=== PATIENT | male | born 1940 | race Hispanic/Latino ===

== ENCOUNTER 2018-06-02 22:10 | Inpatient (IN) | payer MEDICARE, OTHER ==
[2018-06-02 22:10] VITALS: BMI 28.0
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
[2018-06-02 23:46] LABS: BASO # 0.1 K/uL (0.0-0.2); BASO % 0.6 % (0.0-2.0); EOS # 0.1 K/uL (0.0-0.7); EOS % 0.7 % (0.0-4.0); HEMOGLOBIN 11.2 g/dL (12.0-18.0); MEAN CELL VOLUME 93.4 fL (80.0-94.0); MEAN CORPUSCULAR HEMOGLOBIN 31.9 pg (27.0-31.0); MEAN CORPUSCULAR HGB CONC 34.2 g/dL (33.0-37.0); MEAN PLATELET VOLUME 8.2 fL (7.2-11.7); MONO # 0.6 K/uL (0.0-0.8); MONO % 6.1 % (0.0-10.0); NEUT # 8.3 K/uL (1.8-7.0); NEUT % 82.6 % (50.0-75.0); RBC 3.52 Mil/uL (4.40-5.90); RED CELL DISTRIBUTION WIDTH 17.5 % (11.5-14.5); WHITE BLOOD COUNT 10.1 K/uL (4.8-10.8)
[2018-06-02 23:56] LABS: ALB/GLOB RATIO 1.3 (1.0-2.1); ALBUMIN 4.4 g/dL (3.5-5.0); ALT/SGPT 21 U/L (21-72); AST/SGOT 21 U/L (17-59); BLOOD UREA NITROGEN 35 mg/dL (9-20); CALCIUM 9.5 mg/dl (8.6-10.4); GFR NON-AFRICAN AMERICAN 29
[2018-06-03] MEDS ORDERED: Sod Polystyrene Sulf 15 gm/60 ml Susp PO ONE (01:16)
[2018-06-03] MEDS ORDERED: Sod Polystyrene Sulf 15 gm/60 ml Susp ONE (01:22)
[2018-06-03 01:40] LABS: SQUAMOUS EPITHIAL < 1 /hpf (0-5); URINE BILIRUBIN NEGATIVE (NEGATIVE); URINE BLOOD NEGATIVE (NEGATIVE); URINE CLARITY Clear (Clear); URINE COLOR Yellow (YELLOW); URINE GLUCOSE (UA) NORMAL (Normal); URINE LEUKOCYTE ESTERASE NEG Leu/uL (Negative); URINE PROTEIN NEGATIVE (NEGATIVE); URINE UROBILINOGEN NORMAL mg/dL (0.2-1.0)
[2018-06-03 01:54] LABS: BARBITURATES, UR NEGATIVE (NEGATIVE); BENZODIAZEPINES, UR NEGATIVE (NEGATIVE); OPIATES, UR NEGATIVE (NEGATIVE); PHENCYCLIDINE, UR NEGATIVE (NEGATIVE)
--- NOTE | 2018-06-03 07:54 | CT ---
Date of service: 06/03/2018 PROCEDURE: CT HEAD WITHOUT CONTRAST. HISTORY: frequent falls COMPARISON: None available. TECHNIQUE: Axial computed tomography images were obtained through the head/brain without intravenous contrast. Radiation dose: Total exam DLP = 1002.77 mGy-cm. This CT exam was performed using one or more of the following dose reduction techniques: Automated exposure control, adjustment of the mA and/or kV according to patient size, and/or use of iterative reconstruction technique. FINDINGS: HEMORRHAGE: No intracranial hemorrhage. BRAIN: No mass effect or edema. Scattered focal lucencies in the subcortical and periventricular white matter suggestive for chronic microvascular ischemic change. VENTRICLES: Prominent ventricles. CALVARIUM: Unremarkable. PARANASAL SINUSES: Mild mucosal thickening of the ethmoid air cells. MASTOID AIR CELLS: Unremarkable as visualized. No inflammatory changes. OTHER FINDINGS: Intracranial arterial calcifications. IMPRESSION: No acute intracranial abnormality. Chronic microvascular ischemic changes. Diffuse generalized atrophy. Mild sinus mucosal disease. If symptoms persist, consider correlation with MRI. A preliminary report was generated at 1:30 a.m. on 06/03/[address] Eros Quiñonez from [employer].
[2018-06-03 08:06] LABS: BASO # 0.1 K/uL (0.0-0.2); BASO % 0.7 % (0.0-2.0); EOS # 0.1 K/uL (0.0-0.7); EOS % 1.3 % (0.0-4.0); HEMOGLOBIN 10.4 g/dL (12.0-18.0); LYMPH # 1.5 K/uL (1.0-4.3); LYMPH % 19.3 % (20.0-40.0); MEAN CELL VOLUME 92.6 fL (80.0-94.0); MEAN CORPUSCULAR HEMOGLOBIN 31.8 pg (27.0-31.0); MEAN CORPUSCULAR HGB CONC 34.3 g/dL (33.0-37.0); MEAN PLATELET VOLUME 8.1 fL (7.2-11.7); MONO # 0.6 K/uL (0.0-0.8); MONO % 8.2 % (0.0-10.0); NEUT # 5.5 K/uL (1.8-7.0); NEUT % 70.5 % (50.0-75.0); RBC 3.28 Mil/uL (4.40-5.90); RED CELL DISTRIBUTION WIDTH 17.8 % (11.5-14.5); WHITE BLOOD COUNT 7.7 K/uL (4.8-10.8)
[2018-06-03 08:25] LABS: ALB/GLOB RATIO 1.3 (1.0-2.1); ALBUMIN 4.1 g/dL (3.5-5.0); ALT/SGPT 20 U/L (21-72); AST/SGOT 20 U/L (17-59); BLOOD UREA NITROGEN 35 mg/dL (9-20); CALCIUM 9.4 mg/dl (8.6-10.4); GFR NON-AFRICAN AMERICAN 37
--- NOTE | 2018-06-03 08:51 | RAD ---
Chest x-ray single frontal view HISTORY: Altered mental status. COMPARISON: 06/07/2013 FINDINGS: Mild venous congestion. Patchy increased markings at the left lung base with small left pleural effusion. Status post median sternotomy. Enlarged ectatic aorta. Cardiomegaly. Biapical pleural thickening with upper lobe granulomatous changes. Degenerative changes in the spine and shoulders. Impression: Mild venous congestion. Patchy increased markings at the left lung base with small left pleural effusion. Status post median sternotomy. Enlarged ectatic aorta. Cardiomegaly. Biapical pleural thickening with upper lobe granulomatous changes.
[2018-06-03 09:35] LABS: FOLATE > 20.0 ng/mL
[2018-06-03] MEDS: diltiaZEM 60 mg ER Cap PO SCH (09:41)
--- NOTE | 2018-06-03 09:41 | CP.PCM.PN ---
Subjective - Date & Time of Evaluation Date of Evaluation: 06/03/18 Time of Evaluation: 09:37 - Subjective Subjective: PGY3 Note for Dr. Shabazz's Service PMD: Dr. Ramirez Cardiology: Dr. Baires FULL CODE This patient is a 78yo M who came into the hospital s/p mechanical fall; states he was getting up out of his chair to go to the bathroom, lost his footing, and landed only on his knees. He denies any loss of consciousness, remembers the entire event, and he denies incontinence of urine/feces during the event. Denies any precipitating chest pain, palpitations, shortness of breath, abdominal pain, N/V/D, dysuria/freq/urg or headache/fevers/chills. Has been feeling generally well. Alternatively, the patient states he has been noticing that his daily walks down [address] have been decreasing in length 2/2 to weakness; stating he gets more winded than normal. Sleeps with one pillow; denies nocturnal dyspnea or orthopnea; can sleep/lay flat without problem. Denies lower extremity swelling. PMhx: CAD s/p "20" stents, open valvuloplasty, HLD, Hypertrigliceridemia, BPH, DM2 on insulin, Iron Def Anemia, CKD3A, GERD, Seasonal Allergies, HTN, Depression, CHF?? Meds: Aspirin 81mg, Vit D 1k daily, Cardizem ER 240, Finasteride 5 daily, Tamsulosin 0.4 daily, Gemfibrozil 600mg daily, Lantus 100 HS, Aspart 30 before meals, Claritin 10 daily, Toprol XL 25, Omeprazole 20, Ramipril 10, Crestor 5, Brillanta 90, Venlafaxine 75mg BID Surgeries: multiple stent placements, open heart valvuloplasty Allergies: Sulfa, seasonal FamHx: Mom and dad with HTN, DM, CHF Social: Former smoker, hasn't smoked for over 40 years, denies EtOH/illicit drugs; bought a walker 1yr ago for ambulation (doctor did not tell him to, he felt he needed it 2/2 to unsteady gait), independent in all IADL and ADL Objective - Vital Signs/Intake and Output Vital Signs (last 24 hours): Temp Pulse Resp BP Pulse Ox 98.7 F 83 16 119/58 L 96 06/03/18 07:59 06/03/18 07:59 06/03/18 07:59 06/03/18 07:59 06/03/18 07:59 - Medications Medications: Current Medications Acetaminophen (Tylenol 325mg Tab) 650 mg PO Q4H PRN PRN Reason: Pain, moderate (4-7) Last Admin: 06/03/18 06:35 Dose: 650 mg Aspirin (Aspirin Chewable) 81 mg PO DAILY [facility] Diltiazem HCl (Cardizem Sr) 240 mg PO DAILY [facility] Finasteride (Proscar) 5 mg PO DAILY [facility] Gemfibrozil (Lopid) 600 mg PO BID [facility] Heparin Sodium (Porcine) (Heparin) 5,000 units SC Q8 [facility] Home Med (Cholecalciferol [Vitamin D 1000 Iu]) 1,000 iu PO DAILY [facility] Home Med (Iron Aspgly,Ps/C/B12/Fa/Ca/Suc [Ferrex 150 Forte Plus Capsule]) 1 cap PO DAILY [facility] Insulin Aspart (Novolog) unit SC ACHS [facility]; Protocol Insulin Glargine (Lantus) 100 unit SC HS [facility] Lisinopril (Zestril) 20 mg PO DAILY [facility] Loratadine (Claritin) 10 mg PO DAILY [facility] Metoprolol Succinate (Toprol Xl) 25 mg PO DAILY [facility] Pantoprazole Sodium (Protonix Ec Tab) 40 mg PO DAILY [facility] Rosuvastatin Calcium (Crestor) 5 mg PO DAILY@1800 [facility] Tamsulosin HCl (Flomax) 0.4 mg PO DAILY [facility] Ticagrelor (Brilinta) 90 mg PO BID [facility] Venlafaxine HCl (Effexor Xr) 75 mg PO BID [facility] - Labs Labs: 06/03/18 07:57 06/03/18 07:57 - Constitutional Appears: Non-toxic, No Acute Distress - Head Exam Head Exam: ATRAUMATIC, NORMAL INSPECTION - Eye Exam Eye Exam: EOMI, Normal appearance, PERRL - ENT Exam ENT Exam: Mucous Membranes Moist - Neck Exam Neck Exam: Full ROM. absent: Lymphadenopathy - Respiratory Exam Respiratory Exam: Clear to Ausculation Bilateral, NORMAL BREATHING PATTERN. absent: Rales, Rhonchi, Wheezes - Cardiovascular Exam Cardiovascular Exam: REGULAR RHYTHM, +S1, +S2 - GI/Abdominal Exam GI & Abdominal Exam: Soft, Normal Bowel Sounds. absent: Tenderness (obese abd omen, tense from fat) - Extremities Exam Extremities Exam: Full ROM, Normal Capillary Refill. absent: Calf Tenderness, Joint Swelling, Tenderness - Back Exam Back Exam: NORMAL INSPECTION. absent: CVA tenderness (L), CVA tenderness (R) - Neurological Exam Neurological Exam: Alert, Awake, CN II-XII Intact, Oriented x3 Neuro motor strength exam: Left Upper Extremity: 5, Right Upper Extremity: 5, Left Lower Extremity: 5, Right Lower Extremity: 5 - Psychiatric Exam Psychiatric exam: Normal Affect - Skin Skin Exam: Warm Assessment and Plan - Assessment and Plan (Free Text) Assessment: 78yo M admitted for fall Fall; mechanical -patient moving all extremities with 5/5 strength, ANOx3, full mental faculties -Head CT negative for acute findings; chronic microvascular infarcts and age related degen; please refer to full report -HIV neg, RPR pending, B12 Normal, Folate normal -ROMIx2 negative; Telemetry monitoring; patient has extensive cardiac history -PT/OT eval -Fall Precautions -Telemetry monitoring; CKD Stage 3A -Dr. Mejia; thank you for your help -patient unaware of kidney problems, but has been in CKD 3 since last visit on record -Hematology Nurse Educator improved slightly today CHF; chronic not in acute exacerbation; unknown current systolic vs diastolic -2012 echo showed EF of 20-25 percent -Dr. Baires; Cardiology; thank you for your help; this is his blow mold operator as outpatient -patient states that had echo within the year at Dr. Baires office; has never been told that he needs a defibrillator/life vest/AICD -f/u Echo -patient not clinically overloaded; no crackles, no lower extrem swelling Hyperkalemia; resolved -will monitor -most likely 2/2 to CKD 3 Hx of CAD with valvuloplasty and stenting -c/w Aspirin 81, Brillanta 90 daily Hx of HLD/Hypertrigliceridemia -c/w crestor 5 and Gemfibrozil 600 daily Hx of BPH -c/w finasteride 5 and tamsulosin 0.4mg daily Hx of DM2 on Insulin -c/w Lantus 100units SC HS, 30 units aspart before meals -RISS -hypoglycemia protocol -accuchecks ACHS Hx of Anemia; most likely 2/2 to chronic disease -will monitor -c/w Iron supplement Hx of GERD -c/w PPI equivalent of omeprazole Hx of Seasonal Allergies -continue with claritin 10mg daily Hx of HTN -c/w Toprol 25mg, Ramipril 10mg Hx of Depression -c/w Venlafaxine 75mg BID Proph -Hep SC 2/2 to elevations in Hematology Nurse Educator -GI prophylaxis not indicated Case discussed and seen with Dr. Mele Vázquez PGY3
[2018-06-03] MEDS: Venlafaxine 75 mg ER Cap PO SCH ×2 (09:42→18:10)
[2018-06-03] MEDS: Metoprolol Succinate 25 mg XL Tab PO SCH (09:43)
[2018-06-03] MEDS: Pantoprazole 40 mg EC Tab PO SCH (09:43)
[2018-06-03] MEDS ORDERED: Home Med 1 UNIT (Cholecalciferol [Vitamin D 1000 Iu] 1,000 IU) PO SCH (10:00)
[2018-06-03] MEDS ORDERED: Ergocalciferol 50,000 Intl Units Cap PO SCH (10:00)
[2018-06-03] MEDS ORDERED: [UNRECOGNIZED DRUG - OTHER] PO SCH (10:00)
[2018-06-03] MEDS: (Novolog) Insulin Aspart, Recombinant 100 u/ml 10 ml vial SC SCH ×4 (10:20→21:46)
[2018-06-03 10:39] LABS: IRON 69 ug/dL (49-181)
[2018-06-03 10:45] LABS: TOTAL IRON BINDING CAPACITY 327 ug/dL (250-450)
[2018-06-03 10:48] LABS: % IRON SATURATION 21 (20-55)
[2018-06-03] MEDS ORDERED: Perflutren Lipid Microsphere 1.5 ML SUS IV ONE (11:09)
--- NOTE | 2018-06-03 12:25 | CARD ---
APPROVED REPORT Date of service: 06/02/2018 EKG Measurement Heart [id number] <Conclusion> Sinus rhythm with 1st degree AV block Left axis deviation Left bundle branch block Abnormal ECG
[2018-06-03] MEDS ORDERED: (Novolin R) Insulin Human Regular 100 units/ml vial ONE (13:28)
--- NOTE | 2018-06-03 14:03 | CP.PCM.CON ---
History of Present Illness - History of Present Illness History of Present Illness: Nephrology Consultation Note: Assessment: Stable Acute Kidney Injury (N17.9) ? etiology. possible NSAIDs contribution Anemia (D64.9) frequent fall at home HAGMA diabetes Mellitus ( years), hypertension (years) CAD s/p stent hyperlipidemia. anxiety, sys CHF (last EF 20-25%) BPH Plan No acute need for renal replacement therapy at this time. Hypertension control with meds as ordered. Maintain hemodynamics stable. Avoid hypotension. Patient not on ACEI/ARB due to recent CHANA Monitor Input/Output, daily weights and renal function with basic metabolic panel added iron. continue with MVI continue with flomax Check urine analysis, spot protein/creatinine, albumin/creatinine ratio, urine for eosinophils. renal and bladder sonogram Check GN work up as C3, C4, JOE, Anti dsDNA, ANCA (MPO and SD-3) Anemia work up with TSAT/Ferritin/Vitamin B12/folate, serum protein electrophoresis with immunofixation, serum free light chain assay ([place]/Lambda) Check for 25-OH vitamin D, iPTH, phosphorus level. Dose meds/antibiotics for reduced GFR. Avoid fleets enema/magnesium based laxatives. Avoid nephrotoxins/NSAIDs/ iodinated contrast (unless needed emergently) Glycemic control Further work up/management as per primary team Thanks for allowing me to participate in care of your patient. Will follow patient with you. Please call if any Qs. had d/w team Dr Chip Mcgee Office: [phone] Chief Complaint; fall and weakness Reason for consult: Acute Kidney Injury HPI: Pt is a 78 M with hx of diabetes Mellitus ( years), hypertension (years) CAD s/p stent hyperlipidemia. anxiety, sys CHF (last EF 20-25%) BPH presented with complaints of weakness in legs and frequent fall at home. pt otherwise feels in usual health. denies dizziness, GI fluid loss or urine complaints Denies OTC/herbal meds or NSAIDs but home meds list include naproxen No recent iodinated contrast exposure. No obvious episodes of low BP. ROS: Cardiovascular: No chest pain. Pulmonary: No shortness of breath Gastrointestinal: denies abdominal pain No nausea. No vomiting. Genitourinary: No pain while urinating. Denies blood in urine. All other negative except as mentioned in HPI Physical Examination: General Appearance: Comfortable, in no acute respiratory distress, co-operative . Vitals reviewed and noted as below Head; Atraumatic, normocephalic ENT: no ulcers no thrush. Tongue is midline. Oropharynx: no rash or ulcers. he is hard of hearing EYES: Pupils are equal, round and reactive to light accommodation. Eye muscles and extraocular movement intact. Sclera is anicteric. Neck; supple no lymphadenopathy, no thyromegaly or bruit Lungs: Normal respiratory rate/effort. Breath sounds bilateral equal and clear Heart: Normal rate. s1s2 normal. No rub or gallop. Extremities: no edema. No varicose veins Neurological: Patient is alert, awake and oriented to person, place and time. No focal deficit. Strength bilateral appropriate and equal Skin: Warm and dry. Normal turgor. Palpitation: Normal elasticity for age. has petechial appearing rash in lower extremity. pt says due to skin injury from climbing ladders. Abdomen: Abdomen is soft/distended. Bowel sounds +. There is no abdominal tenderness, no guarding/rigidity no organomegaly Psych: normal insight and normal affect/mood MSK: no joint tenderness or swelling. Digits and nails normal, no deformity : kidney or bladder not palpable Labs/imaging reviewed. Past medical history, past surgical history, family history, social history, allergy reviewed and noted as below Family hx: no hx of CKD. Rest non-contributory UA and urine tox neg Past Patient History - Infectious Disease Hx of Infectious Diseases: None - Past Medical History & Family History Past Medical History?: Yes - Past Social History Smoking Status: Former Smoker - CARDIAC Hx Hypercholesterolemia: Yes Hx Hypertension: Yes - PULMONARY Hx Asthma: Yes Hx Emphysema: Yes (MILD) - NEUROLOGICAL Hx Neurological Disorder: Yes (NEUROPATHY LOWER EXTREMITIES) - HEENT Hx HEENT Problems: Yes Hx Cataracts: Yes (BILATERAL IMMATURE) - RENAL Hx Chronic Kidney Disease: No - ENDOCRINE/METABOLIC Hx Endocrine Disorders: Yes Hx Diabetes Mellitus Type 2: Yes - HEMATOLOGICAL/ONCOLOGICAL Hx Blood Disorders: No - INTEGUMENTARY Hx Dermatological Problems: No - MUSCULOSKELETAL/RHEUMATOLOGICAL Hx Falls: Yes - GASTROINTESTINAL Hx Gastrointestinal Disorders: Yes Hx Colitis: Yes - GENITOURINARY/GYNECOLOGICAL Hx Genitourinary Disorders: Yes Hx Prostate Problems: Yes (BPH) - PSYCHIATRIC Hx Substance Use: No - SURGICAL HISTORY Hx Appendectomy: Yes Hx Coronary Artery Bypass Graft: Yes Hx Coronary Stent: Yes - ANESTHESIA Hx Anesthesia: Yes Hx Anesthesia Reactions: No Hx Malignant Hyperthermia: No Meds Allergies/Adverse Reactions: Allergies Allergy/AdvReac Type Severity Reaction Status Date / Time Sulfa (Sulfonamide Allergy ANAPHYLAXIS Verified 06/02/18 23:19 Antibiotics) DUST Allergy Intermediate WHEEZING Uncoded 06/02/18 22:41 WEEDS Allergy Intermediate WHEEZING Uncoded 06/02/18 22:41 - Medications Medications: Current Medications Acetaminophen (Tylenol 325mg Tab) 650 mg PO Q4H PRN PRN Reason: Pain, moderate (4-7) Last Admin: 06/03/18 06:35 Dose: 650 mg Aspirin (Aspirin Chewable) 81 mg PO DAILY [facility] Last Admin: 06/03/18 09:41 Dose: 81 mg Diltiazem HCl (Cardizem Sr) 240 mg PO DAILY [facility] Last Admin: 06/03/18 09:41 Dose: 240 mg Ergocalciferol (Drisdol 50,000 Intl Units Cap) 1 cap PO QWK [facility] Finasteride (Proscar) 5 mg PO DAILY [facility] Last Admin: 06/03/18 09:53 Dose: Not Given Gemfibrozil (Lopid) 600 mg PO BID [facility] Last Admin: 06/03/18 09:42 Dose: 600 mg Heparin Sodium (Porcine) (Heparin) 5,000 units SC Q8 [facility] Last Admin: 06/03/18 09:51 Dose: 5,000 units Insulin Aspart (Novolog) 0 unit SC [facility]; Protocol Last Admin: 06/03/18 10:20 Dose: Not Given Insulin Glargine (Lantus) 100 unit SC [facility] Loratadine (Claritin) 10 mg PO DAILY [facility] Last Admin: 06/03/18 09:41 Dose: 10 mg Metoprolol Succinate (Toprol Xl) 25 mg PO DAILY [facility] Last Admin: 06/03/18 09:43 Dose: 25 mg Multivitamins/Minerals (Therapeutic-M Tab) 1 tab PO DAILY [facility] Pantoprazole Sodium (Protonix Ec Tab) 40 mg PO DAILY [facility] Last Admin: 06/03/18 09:43 Dose: 40 mg Rosuvastatin Calcium (Crestor) 5 mg PO DAILY@1800 [facility] Tamsulosin HCl (Flomax) 0.4 mg PO DAILY [facility] Last Admin: 06/03/18 09:42 Dose: 0.4 mg Ticagrelor (Brilinta) 90 mg PO BID [facility] Last Admin: 06/03/18 09:41 Dose: 90 mg Venlafaxine HCl (Effexor Xr) 75 mg PO BID [facility] Last Admin: 06/03/18 09:42 Dose: 75 mg Results - Vital Signs Recent Vital Signs: Last Vital Signs Temp 98.7 F 06/03/18 07:59 Pulse 84 06/03/18 10:43 Resp 15 06/03/18 10:43 BP 125/92 H 06/03/18 10:43 Pulse Ox 96 06/03/18 10:43 - Labs Result Diagrams: 06/03/18 07:57 06/03/18 07:57 Labs: Laboratory Results - last 24 hr 06/02/18 06/02/18 06/02/18 22:32 23:38 23:38 WBC 10.1 RBC 3.52 L Hgb 11.2 L Hct 32.8 L MCV 93.4 D MCH 31.9 H MCHC 34.2 RDW 17.5 H Plt Count 189 MPV 8.2 Neut % (Auto) 82.6 H Lymph % (Auto) 10.0 L [place] % (Auto) 6.1 Eos % (Auto) 0.7 Baso % (Auto) 0.6 Neut # (Auto) 8.3 H Lymph # (Auto) 1.0 [place]corn # (Auto) 0.6 Eos # (Auto) 0.1 Baso # (Auto) 0.1 Sodium 139 Potassium 5.8 H Chloride 108 H Carbon Dioxide 17 L Anion Gap 20 BUN 35 H Creatinine 2.2 H Est GFR ( Amer) 35 Est GFR (Non-Af Amer) 29 POC Glucose (mg/dL) 105 Random Glucose 121 H Calcium 9.5 Phosphorus Magnesium Iron TIBC % Saturation Ferritin Total Bilirubin 0.5 AST 21 ALT 21 D Alkaline Phosphatase 78 Total Creatine Kinase CK-MB (Mass) Troponin I < 0.0120 Total Protein 7.7 Albumin 4.4 Globulin 3.3 Albumin/Globulin Ratio 1.3 Vitamin B12 Folate Urine Color Urine Clarity Urine pH Ur Specific [place] Urine Protein Urine Glucose (UA) Urine Ketones Urine Blood Urine Nitrate Urine Bilirubin Urine Urobilinogen Ur Leukocyte Esterase Urine WBC (Auto) Urine RBC (Auto) Ur Squamous Epith Cells Urine Opiates Screen Urine Methadone Screen Ur Barbiturates Screen Ur Phencyclidine Scrn Ur Amphetamines Screen U Benzodiazepines Scrn U Oth Cocaine Metabols U Cannabinoids Screen Alcohol, Quantitative < 10 HIV 1&2 Antibody Screen 06/03/18 06/03/18 06/03/18 01:10 01:10 07:57 WBC RBC Hgb Hct MCV MCH MCHC RDW Plt Count MPV Neut % (Auto) Lymph % (Auto) [place] % (Auto) Eos % (Auto) Baso % (Auto) Neut # (Auto) Lymph # (Auto) [place] # (Auto) Eos # (Auto) Baso # (Auto) Sodium Potassium Chloride Carbon Dioxide Anion Gap BUN Creatinine Est GFR ( Amer) Est GFR (Non-Af Amer) POC Glucose (mg/dL) Random Glucose Calcium Phosphorus 4.0 Magnesium 2.0 Iron TIBC % Saturation Ferritin Total Bilirubin AST ALT Alkaline Phosphatase Total Creatine Kinase CK-MB (Mass) Troponin I Total Protein Albumin Globulin Albumin/Globulin Ratio Vitamin B12 380 Folate > 20.0 Urine Color Yellow Urine Clarity Clear Urine pH 6.0 Ur Specific [place] 1.013 Urine Protein Negative Urine Glucose (UA) Normal Urine Ketones Negative Urine Blood Negative Urine Nitrate Negative Urine Bilirubin Negative Urine Urobilinogen Normal Ur Leukocyte Esterase Neg Urine WBC (Auto) 1 Urine RBC (Auto) < 1 Ur Squamous Epith Cells < 1 Urine Opiates Screen Negative Urine Methadone Screen Negative Ur Barbiturates Screen Negative Ur Phencyclidine Scrn Negative Ur Amphetamines Screen Negative U Benzodiazepines Scrn Negative U Oth Cocaine Metabols Negative U Cannabinoids Screen Negative Alcohol, Quantitative HIV 1&2 Antibody Screen 06/03/18 06/03/18 06/03/18 07:57 07:57 07:57 WBC 7.7 RBC 3.28 L Hgb 10.4 L Hct 30.4 L MCV 92.6 MCH 31.8 H MCHC 34.3 RDW 17.8 H Plt Count 171 MPV 8.1 Neut % (Auto) 70.5 Lymph % (Auto) 19.3 L [place] % (Auto) 8.2 Eos % (Auto) 1.3 Baso % (Auto) 0.7 Neut # (Auto) 5.5 Lymph # (Auto) 1.5 [place] # (Auto) 0.6 Eos # (Auto) 0.1 Baso # (Auto) 0.1 Sodium 140 Potassium 4.2 Chloride 109 H Carbon Dioxide 18 L Anion Gap 18 BUN 35 H Creatinine 1.8 H Est GFR ( Amer) 45 Est GFR (Non-Af Amer) 37 POC Glucose (mg/dL) Random Glucose 161 H Calcium 9.4 Phosphorus Magnesium Iron TIBC % Saturation Ferritin 78.0 Total Bilirubin 0.4 AST 20 ALT 20 L Alkaline Phosphatase 70 Total Creatine Kinase 51 L CK-MB (Mass) 1.70 Troponin I < 0.0120 Total Protein 7.1 Albumin 4.1 Globulin 3.0 Albumin/Globulin Ratio 1.3 Vitamin B12 Folate Urine Color Urine Clarity Urine pH Ur Specific [place] Urine Protein Urine Glucose (UA) Urine Ketones Urine Blood Urine Nitrate Urine Bilirubin Urine Urobilinogen Ur Leukocyte Esterase Urine WBC (Auto) Urine RBC (Auto) Ur Squamous Epith Cells Urine Opiates Screen Urine Methadone Screen Ur Barbiturates Screen Ur Phencyclidine Scrn Ur Amphetamines Screen U Benzodiazepines Scrn U Oth Cocaine Metabols U Cannabinoids Screen Alcohol, Quantitative HIV 1&2 Antibody Screen Negative 06/03/18 09:42 WBC RBC Hgb Hct MCV MCH MCHC RDW Plt Count MPV Neut % (Auto) Lymph % (Auto) [place] % (Auto) Eos % (Auto) Baso % (Auto) Neut # (Auto) Lymph # (Auto) [place] # (Auto) Eos # (Auto) Baso # (Auto) Sodium Potassium Chloride Carbon Dioxide Anion Gap BUN Creatinine Est GFR ( Amer) Est GFR (Non-Af Amer) POC Glucose (mg/dL) Random Glucose Calcium Phosphorus Magnesium Iron 69 TIBC 327 % Saturation 21 Ferritin Total Bilirubin AST ALT Alkaline Phosphatase Total Creatine Kinase CK-MB (Mass) Troponin I Total Protein Albumin Globulin Albumin/Globulin Ratio Vitamin B12 Folate Urine Color Urine Clarity Urine pH Ur Specific [place] Urine Protein Urine Glucose (UA) Urine Ketones Urine Blood Urine Nitrate Urine Bilirubin Urine Urobilinogen Ur Leukocyte Esterase Urine WBC (Auto) Urine RBC (Auto) Ur Squamous Epith Cells Urine Opiates Screen Urine Methadone Screen Ur Barbiturates Screen Ur Phencyclidine Scrn Ur Amphetamines Screen U Benzodiazepines Scrn U Oth Cocaine Metabols U Cannabinoids Screen Alcohol, Quantitative HIV 1&2 Antibody Screen
[2018-06-03 14:13] LABS: CK-MB 1.67 ng/mL (0.0-3.38); TROPONIN I 0.013 ng/mL (0.00-0.120)
[2018-06-03 14:24] VITALS: RESP 20
--- NOTE | 2018-06-03 15:28 | US ---
Date of service: 06/03/2018 PROCEDURE: Ultrasound of the Kidneys HISTORY: [facility]ANA. PLEASE EVAL FOR PVR COMPARISON: Comparison is made with the previous CT dated 03/28/2014.. TECHNIQUE: Sonogram of the kidneys. FINDINGS: RIGHT KIDNEY: Measures: 11.9 x 5.5 x 5.3 cm. There is diffuse increased echogenicity of the renal cortex noted. No stone, solid mass lesion or hydronephrosis visualized. LEFT KIDNEY: Measures: 12.7 x 5.6 x 5.7 cm. Diffuse increased echogenicity of the renal cortex noted. No stone, solid mass lesion or hydronephrosis visualized. OTHER FINDINGS: The urinary bladder is distended measures 14 x 10 x 10.2 centimeter with a total volume of 751.5 mL. The calculated postvoid residual is significant measures 574.3 mL. The prostate measures 4.5 x 3.75 x 4.6 centimeter with a total volume of 40.6 mL. IMPRESSION: Echogenic kidneys without evidence of hydronephrosis. Significant postvoid residual measures 574.3 mL. Enlarged prostate with a total volume of 40.6 mL.
--- NOTE | 2018-06-03 17:44 | CARD ---
APPROVED REPORT Date of service: 06/03/2018 EXAM: Two-dimensional echocardiogram with contrast. INDICATION Dyspnea 2D DIMENSIONS IVSd0.9 (0.7-1.1cm)LVDd4.7 (3.9-5.9cm) LVOT Diameter2.0 (1.8-2.4cm)PWd0.9 (0.7-1.1cm) LA Pzejir96 (18-58mL)LVDs3.5 (2.5-4.0cm) FS (%) 26.2 %LVEF (%)51.4 (>50%) LVEF ([place]'s)50 % M-Mode DIMENSIONS Left Atrium (MM)4.12 (2.5-4.0cm)Aortic Root2.41 (2.2-3.7cm) Aortic Valve AoV Peak Nkiisaor308.4cm/sAoV VTI43.1cmAO Peak GR.18mmHg LVOT Peak Yulzjkmo021.2cm/sLVOT VTI24.43cmAO Mean GR.10mmHg LEE (VMAX)1.50qy9DVZ (VTI)1.72cm2 Mitral Valve MV E Cphpofgq641.3cm/sE/A ratio0.0 TDI Lateral E' Peak V9.13cm/sMedial E' Peak V7.97cm/sE/Lateral E'15.9 E/Medial E'18.2 LEFT VENTRICLE The left ventricle is normal size. There is normal left ventricular wall thickness. Left ventricle systolic function is normal. The Ejection Fraction is 55-60%. using echo contrast. There is normal LV segmental wall motion. Transmitral Doppler flow pattern is Grade I-abnormal relaxation pattern. There is no ventricular septal defect visualized. RIGHT VENTRICLE The right ventricle is normal size. The right ventricular systolic function is normal. ATRIA The left atrium is mildly dilated. The right atrium size is normal. AORTIC VALVE The aortic valve is mildly sclerotic. The aortic valve is tri-cuspid. No aortic regurgitation is present. There is mild valvular aortic stenosis. Calculated aortic valve area is 1.6 cm2 with maximum pressure gradient of 18 mmHg and mean pressure gradient of 10 mmHg. MITRAL VALVE The mitral valve is normal in structure. The mitral valve is not well visualized. There is no evidence of mitral valve prolapse. There is no mitral valve regurgitation noted. TRICUSPID VALVE The tricuspid valve is not well visualized. There is no tricuspid valve regurgitation noted. PULMONIC VALVE The pulmonic valve is not well visualized. There is no pulmonic valvular regurgitation. GREAT VESSELS The aortic root is normal in size. The ascending aorta is normal in size. The IVC is normal in size and collapses >50% with inspiration. PERICARDIAL EFFUSION There is no pericardial effusion. <Conclusion> Left ventricle systolic function is normal. The Ejection Fraction is 55-60%. using echo contrast. There is normal LV segmental wall motion. Transmitral Doppler flow pattern is Grade I-abnormal relaxation pattern. There is mild valvular aortic stenosis.
--- NOTE | 2018-06-03 18:30 | CP.PCM.CON ---
History of Present Illness - History of Present Illness History of Present Illness: I was asked to see patient by Dr Shabazz. Patient seen 06/03/181819 Patient is a 78 year old male with CAD s/p CABG, PCI, AVR HTn, DM who presents with syncope. Patient states he bent down and tried to lift his head and felt light headed. He was brought to the ER for further management. He insists he did not pass out and merely was dizzy. He denies chest pain or dyspnea Review of Systems - Constitutional Constitutional: absent: As Per HPI, Anorexia, Chills, Daytime Sleepiness, Excessive Sweating, Fatigue, Fever, Frequent Falls, Headache, Increased Appetite, Lethargy, Malaise, Night Sweats, Snoring, Sleep Apnea, Weight Gain, Weight Loss, Weakness, Other - EENT Eyes: absent: As Per HPI, Blind Spots, Blurred Vision, Change in Vision, Decreased Night Vision, Diplopia, Discharge, Dry Eye, Exophthalmos, Floaters, Irritation, Itchy Eyes, Loss of Peripheral Vision, Pain, Photophobia, Requires Corrective Lenses, Sees Flashes, Spots in Vision, Tunnel Vision, Other Visual Disturbances, Loss of Vision, Other Ears: absent: As Per HPI, Decreased Hearing, Ear Discharge, Ear Pain, Tinnitus, Abnormal Hearing, Disequilibrium, Dizziness, Other Nose/Mouth/Throat: absent: As Per HPI, Epistaxis, Nasal Congestion, Nasal Discharge, Nasal Obstruction, Nasal Trauma, Nose Pain, Post Nasal Drip, Sinus Pain, Sinus Pressure, Bleeding Gums, Change in Voice, Dental Pain, Dry Mouth, Dy sphagia, Halitosis, Hoarsness, Lip Swelling, Mouth Lesions, Mouth Pain, Odynophagia, Sore Throat, Throat Swelling, Tongue Swelling, Facial Pain, Neck Pain, Neck Mass, Other - Cardiovascular Cardiovascular: Syncope - Respiratory Respiratory: absent: As Per HPI, Cough, Dyspnea, Hemoptysis, Dyspnea on Exertion, Wheezing, Snoring, Stridor, Pain on Inspiration, Chest Congestion, Excessive Mucous Production, Change in Mucous Color, Pain with Coughing, Other - Gastrointestinal Gastrointestinal: absent: As Per HPI, Abdominal Pain, Belching, Bloating, Change in Bowel Habits, Change in Stool Character, Coffee Ground Emesis, Constipation, Cramping, Diarrhea, Dyspepsia, Dysphagia, Early Satiety, Excessive Flatus, Fecal Incontinence, Heartburn, Hematemesis, Hematochezia, Loose Stools, Melena, Nausea, Odynophagia, Temesmus, Vomiting, Other - Genitourinary Genitourinary: absent: As Per HPI, Change in Urinary Stream, Difficulty Urinating, Dysuria, Flank Pain, Hematuria, Pyuria, Nocturia, Urinary Incontinence, Urinary Frequency, Urinary Hesitance, Urinary Urgency, Voiding Freq/Small Amts, Freq UTI, Hx Renal/Bladder Calculi, Hx /Renal Surgery, Bladder Distension, Other - Musculoskeletal Musculoskeletal: absent: As Per HPI, Abnormal Gait, Arthralgias, Atrophy, Back Pain, Deformity, Joint Swelling, Limited Range of Motion, Loss of Height, Muscle Cramps, Muscle Weakness, Myalgias, Neck Pain, Numbness, Radiating Pain into Limb, Stiffness, Tingling, Other - Integumentary Integumentary: absent: As Per HPI, Acne, Alopecia, Bleeding Lesions, Change in Hair, Change in Nails, Change in Pigmentation, Changing Lesions, Dry Skin, Erythema, Furuncle, Hirsutism, Lesions, New Lesions, Non-Healing Lesions, Photosensitivity, Pruritus, Rash, Skin Pain, Skin Ulcer, Sores, Striae, Swelling, Unusual Bruising, Wounds, Jaundice, Other - Neurological Neurological: absent: As Per HPI, Abnormal Gait, Abnormal Hearing, Abnormal Movements, Abnormal Speech, Behavioral Changes, Burning Sensations, Confusion, Convulsions, Disequilibrium, Dizziness, Numbness, Focal Weakness, Frequent Falls, Headaches, Lack of Coordination, Loss of Vision, Memory Loss, Paresthesias, Radicular Pain, Restless Legs, Sensory Deficit, Syncope, Tingling, Tremor, Vertigo, Weakness, Other Visual Disturbances, Other - Psychiatric Psychiatric: absent: As Per HPI, Abnormal Sleep Pattern, Anhedonia, Anxiety, Auditory Hallucinations, Behavioral Changes, Change in Appetite, Change in Libido, Confusion, Depression, Difficulty Concentrating, Hallucinations, Homicidal Ideation, Hopelessness, Irritability, Memory Loss, Mood Swings, Panic Attacks, Paranoia, Suicidal Ideation, Visual Hallucinations, Tactile Hallucinations, Other - Endocrine Endocrine: absent: As Per HPI, Change in Body Appearance, Change in Libido, Cold Intolorance, Deepening of Voice, Excessive Sweating, Fatigue, Flushing, Heat Intolorance, Increase in Ring/Shoe/Hat Size, Palpitations, Polydipsia, Polyphagia, Polyuria, Other - Hematologic/Lymphatic Hematologic: absent: As Per HPI, Easy Bleeding, Easy Bruising, Lymphadenopathy, Other Past Patient History - Infectious Disease Hx of Infectious Diseases: None - Past Medical History & Family History Past Medical History?: Yes - Past Social History Smoking Status: Former Smoker - CARDIAC Hx Hypercholesterolemia: Yes Hx Hypertension: Yes - PULMONARY Hx Chronic Obstructive Pulmonary Disease (COPD): Yes Hx Emphysema: No - NEUROLOGICAL Hx Neurological Disorder: Yes (NEUROPATHY LOWER EXTREMITIES) - HEENT Hx HEENT Problems: Yes Hx Cataracts: Yes (BILATERAL IMMATURE) - RENAL Hx Chronic Kidney Disease: No - ENDOCRINE/METABOLIC Hx Endocrine Disorders: Yes Hx Diabetes Mellitus Type 2: Yes - HEMATOLOGICAL/ONCOLOGICAL Hx Blood Disorders: No Hx Shingles: Yes - INTEGUMENTARY Hx Psoriasis: Yes - MUSCULOSKELETAL/RHEUMATOLOGICAL Hx Falls: Yes - GASTROINTESTINAL Hx Gastrointestinal Disorders: Yes Hx Colitis: Yes - GENITOURINARY/GYNECOLOGICAL Hx Genitourinary Disorders: Yes Hx Prostate Problems: Yes (BPH) - PSYCHIATRIC Hx Substance Use: No - SURGICAL HISTORY Hx Appendectomy: Yes Hx Coronary Artery Bypass Graft: Yes Hx Coronary Stent: Yes Hx Valve Replacement: Yes - ANESTHESIA Hx Anesthesia: Yes Hx Anesthesia Reactions: No Hx Malignant Hyperthermia: No Has any member of the family had a problem w/ anesthesia?: No Meds Allergies/Adverse Reactions: Allergies Allergy/AdvReac Type Severity Reaction Status Date / Time Sulfa (Sulfonamide Allergy ANAPHYLAXIS Verified 06/02/18 23:19 Antibiotics) DUST Allergy Intermediate WHEEZING Uncoded 06/02/18 22:41 WEEDS Allergy Intermediate WHEEZING Uncoded 06/02/18 22:41 - Medications Medications: Current Medications Acetaminophen (Tylenol 325mg Tab) 650 mg PO Q4H PRN PRN Reason: Pain, moderate (4-7) Last Admin: 06/03/18 18:11 Dose: 650 mg Aspirin (Aspirin Chewable) 81 mg PO DAILY [facility] Last Admin: 06/03/18 09:41 Dose: 81 mg Diltiazem HCl (Cardizem Sr) 240 mg PO DAILY [facility] Last Admin: 06/03/18 09:41 Dose: 240 mg Ergocalciferol (Drisdol 50,000 Intl Units Cap) 1 cap PO QWK [facility] Last Admin: 06/03/18 13:26 Dose: 1 cap Ferrous Gluconate (Fergon) 324 mg PO TID [facility] Last Admin: 06/03/18 18:10 Dose: 324 mg Finasteride (Proscar) 5 mg PO DAILY [facility] Last Admin: 06/03/18 09:53 Dose: Not Given Gemfibrozil (Lopid) 600 mg PO BID [facility] Last Admin: 06/03/18 18:09 Dose: 600 mg Heparin Sodium (Porcine) (Heparin) 5,000 units SC Q8 [facility] Last Admin: 06/03/18 14:49 Dose: Not Given Insulin Aspart (Novolog) 0 unit SC [facility]; Protocol Last Admin: 06/03/18 18:10 Dose: 2 unit Insulin Glargine (Lantus) 100 unit SC [facility] Loratadine (Claritin) 10 mg PO DAILY [facility] Last Admin: 06/03/18 09:41 Dose: 10 mg Metoprolol Succinate (Toprol Xl) 25 mg PO DAILY [facility] Last Admin: 06/03/18 09:43 Dose: 25 mg Multivitamins/Minerals (Therapeutic-M Tab) 1 tab PO DAILY [facility] Pantoprazole Sodium (Protonix Ec Tab) 40 mg PO DAILY [facility] Last Admin: 06/03/18 09:43 Dose: 40 mg Rosuvastatin Calcium (Crestor) 5 mg PO DAILY@1800 [facility] Last Admin: 06/03/18 18:09 Dose: 5 mg Tamsulosin HCl (Flomax) 0.4 mg PO DAILY [facility] Last Admin: 06/03/18 09:42 Dose: 0.4 mg Ticagrelor (Brilinta) 90 mg PO BID [facility] Last Admin: 06/03/18 18:09 Dose: 90 mg Venlafaxine HCl (Effexor Xr) 75 mg PO BID [facility] Last Admin: 06/03/18 18:10 Dose: 75 mg Physical Exam - Constitutional Appears: Non-toxic - Head Exam Head Exam: NORMAL INSPECTION - Eye Exam Eye Exam: Normal appearance - ENT Exam ENT Exam: Mucous Membranes Moist - Neck Exam Neck exam: Positive for: Full Rom, Normal Inspection - Respiratory Exam Respiratory Exam: NORMAL BREATHING PATTERN - Cardiovascular Exam Cardiovascular Exam: REGULAR RHYTHM, Systolic Murmur - GI/Abdominal Exam GI & Abdominal Exam: Normal Bowel Sounds - Rectal Exam Rectal Exam: Deferred - Extremities Exam Extremities exam: Negative for: pedal edema - Back Exam Back exam: NORMAL INSPECTION - Neurological Exam Neurological exam: Alert, Oriented x3 - Psychiatric Exam Psychiatric exam: Normal Affect - Skin Skin Exam: Normal Color Results - Vital Signs Recent Vital Signs: Last Vital Signs Temp 98.6 F 06/03/18 15:51 Pulse 84 06/03/18 15:51 Resp 20 06/03/18 15:51 BP 159/70 H 06/03/18 15:51 Pulse Ox 95 06/03/18 15:51 - Labs Result Diagrams: 06/03/18 07:57 06/03/18 07:57 Labs: Laboratory Results - last 24 hr 06/02/18 06/02/18 06/02/18 22:32 23:38 23:38 WBC 10.1 RBC 3.52 L Hgb 11.2 L Hct 32.8 L MCV 93.4 D MCH 31.9 H MCHC 34.2 RDW 17.5 H Plt Count 189 MPV 8.2 Neut % (Auto) 82.6 H Lymph % (Auto) 10.0 L [place] % (Auto) 6.1 Eos % (Auto) 0.7 Baso % (Auto) 0.6 Neut # (Auto) 8.3 H Lymph # (Auto) 1.0 [place] # (Auto) 0.6 Eos # (Auto) 0.1 Baso # (Auto) 0.1 Sodium 139 Potassium 5.8 H Chloride 108 H Carbon Dioxide 17 L Anion Gap 20 BUN 35 H Creatinine 2.2 H Est GFR ( Amer) 35 Est GFR (Non-Af Amer) 29 POC Glucose (mg/dL) 105 Random Glucose 121 H Calcium 9.5 Phosphorus Magnesium Iron TIBC % Saturation Ferritin Total Bilirubin 0.5 AST 21 ALT 21 D Alkaline Phosphatase 78 Total Creatine Kinase CK-MB (Mass) Troponin I < 0.0120 Total Protein 7.7 Albumin 4.4 Globulin 3.3 Albumin/Globulin Ratio 1.3 Vitamin B12 Folate Urine Color Urine Clarity Urine pH Ur Specific [place] Urine Protein Urine Glucose (UA) Urine Ketones Urine Blood Urine Nitrate Urine Bilirubin Urine Urobilinogen Ur Leukocyte Esterase Urine WBC (Auto) Urine RBC (Auto) Ur Squamous Epith Cells Urine Opiates Screen Urine Methadone Screen Ur Barbiturates Screen Ur Phencyclidine Scrn Ur Amphetamines Screen U Benzodiazepines Scrn U Oth Cocaine Metabols U Cannabinoids Screen Alcohol, Quantitative < 10 RPR HIV 1&2 Antibody Screen 06/03/18 06/03/18 06/03/18 01:10 01:10 07:57 WBC RBC Hgb Hct MCV MCH MCHC RDW Plt Count MPV Neut % (Auto) Lymph % (Auto) [place] % (Auto) Eos % (Auto) Baso % (Auto) Neut # (Auto) Lymph # (Auto) [place] # (Auto) Eos # (Auto) Baso # (Auto) Sodium Potassium Chloride Carbon Dioxide Anion Gap BUN Creatinine Est GFR ( Amer) Est GFR (Non-Af Amer) POC Glucose (mg/dL) Random Glucose Calcium Phosphorus 4.0 Magnesium 2.0 Iron TIBC % Saturation Ferritin Total Bilirubin AST ALT Alkaline Phosphatase Total Creatine Kinase CK-MB (Mass) Troponin I Total Protein Albumin Globulin Albumin/Globulin Ratio Vitamin B12 380 Folate > 20.0 Urine Color Yellow Urine Clarity Clear Urine pH 6.0 Ur Specific [place] 1.013 Urine Protein Negative Urine Glucose (UA) Normal Urine Ketones Negative Urine Blood Negative Urine Nitrate Negative Urine Bilirubin Negative Urine Urobilinogen Normal Ur Leukocyte Esterase Neg Urine WBC (Auto) 1 Urine RBC (Auto) < 1 Ur Squamous Epith Cells < 1 Urine Opiates Screen Negative Urine Methadone Screen Negative Ur Barbiturates Screen Negative Ur Phencyclidine Scrn Negative Ur Amphetamines Screen Negative U Benzodiazepines Scrn Negative U Oth Cocaine Metabols Negative U Cannabinoids Screen Negative Alcohol, Quantitative RPR HIV 1&2 Antibody Screen 06/03/18 06/03/18 06/03/18 07:57 07:57 07:57 WBC 7.7 RBC 3.28 L Hgb 10.4 L Hct 30.4 L MCV 92.6 MCH 31.8 H MCHC 34.3 RDW 17.8 H Plt Count 171 MPV 8.1 Neut % (Auto) 70.5 Lymph % (Auto) 19.3 L [place] % (Auto) 8.2 Eos % (Auto) 1.3 Baso % (Auto) 0.7 Neut # (Auto) 5.5 Lymph # (Auto) 1.5 [place] # (Auto) 0.6 Eos # (Auto) 0.1 Baso # (Auto) 0.1 Sodium 140 Potassium 4.2 Chloride 109 H Carbon Dioxide 18 L Anion Gap 18 BUN 35 H Creatinine 1.8 H Est GFR ( Amer) 45 Est GFR (Non-Af Amer) 37 POC Glucose (mg/dL) Random Glucose 161 H Calcium 9.4 Phosphorus Magnesium Iron TIBC % Saturation Ferritin 78.0 Total Bilirubin 0.4 AST 20 ALT 20 L Alkaline Phosphatase 70 Total Creatine Kinase 51 L CK-MB (Mass) 1.70 Troponin I < 0.0120 Total Protein 7.1 Albumin 4.1 Globulin 3.0 Albumin/Globulin Ratio 1.3 Vitamin B12 Folate Urine Color Urine Clarity Urine pH Ur Specific [place] Urine Protein Urine Glucose (UA) Urine Ketones Urine Blood Urine Nitrate Urine Bilirubin Urine Urobilinogen Ur Leukocyte Esterase Urine WBC (Auto) Urine RBC (Auto) Ur Squamous Epith Cells Urine Opiates Screen Urine Methadone Screen Ur Barbiturates Screen Ur Phencyclidine Scrn Ur Amphetamines Screen U Benzodiazepines Scrn U Oth Cocaine Metabols U Cannabinoids Screen Alcohol, Quantitative RPR HIV 1&2 Antibody Screen Negative 06/03/18 06/03/18 06/03/18 07:57 09:42 13:18 WBC RBC Hgb Hct MCV MCH MCHC RDW Plt Count MPV Neut % (Auto) Lymph % (Auto) [place] % (Auto) Eos % (Auto) Baso % (Auto) Neut # (Auto) Lymph # (Auto) [place] # (Auto) Eos # (Auto) Baso # (Auto) Sodium Potassium Chloride Carbon Dioxide Anion Gap BUN Creatinine Est GFR ( Amer) Est GFR (Non-Af Amer) POC Glucose (mg/dL) 189 H Random Glucose Calcium Phosphorus Magnesium Iron 69 TIBC 327 % Saturation 21 Ferritin Total Bilirubin AST ALT Alkaline Phosphatase Total Creatine Kinase CK-MB (Mass) Troponin I Total Protein Albumin Globulin Albumin/Globulin Ratio Vitamin B12 Folate Urine Color Urine Clarity Urine pH Ur Specific [place] Urine Protein Urine Glucose (UA) Urine Ketones Urine Blood Urine Nitrate Urine Bilirubin Urine Urobilinogen Ur Leukocyte Esterase Urine WBC (Auto) Urine RBC (Auto) Ur Squamous Epith Cells Urine Opiates Screen Urine Methadone Screen Ur Barbiturates Screen Ur Phencyclidine Scrn Ur Amphetamines Screen U Benzodiazepines Scrn U Oth Cocaine Metabols U Cannabinoids Screen Alcohol, Quantitative RPR Nonreactive HIV 1&2 Antibody Screen 06/03/18 06/03/18 13:43 16:38 WBC RBC Hgb Hct MCV MCH MCHC RDW Plt Count MPV Neut % (Auto) Lymph % (Auto) [place] % (Auto) Eos % (Auto) Baso % (Auto) Neut # (Auto) Lymph # (Auto) [place] # (Auto) Eos # (Auto) Baso # (Auto) Sodium Potassium Chloride Carbon Dioxide Anion Gap BUN Creatinine Est GFR ( Amer) Est GFR (Non-Af Amer) POC Glucose (mg/dL) 201 H Random Glucose Calcium Phosphorus Magnesium Iron TIBC % Saturation Ferritin Total Bilirubin AST ALT Alkaline Phosphatase Total Creatine Kinase 56 CK-MB (Mass) 1.67 Troponin I 0.0130 Total Protein Albumin Globulin Albumin/Globulin Ratio Vitamin B12 Folate Urine Color Urine Clarity Urine pH Ur Specific [place] Urine Protein Urine Glucose (UA) Urine Ketones Urine Blood Urine Nitrate Urine Bilirubin Urine Urobilinogen Ur Leukocyte Esterase Urine WBC (Auto) Urine RBC (Auto) Ur Squamous Epith Cells Urine Opiates Screen Urine Methadone Screen Ur Barbiturates Screen Ur Phencyclidine Scrn Ur Amphetamines Screen U Benzodiazepines Scrn U Oth Cocaine Metabols U Cannabinoids Screen Alcohol, Quantitative RPR HIV 1&2 Antibody Screen - EKG Data EKG Interpreted by: Myself EKG shows normal: Sinus rhythm Assessment & Plan (1) CAD (coronary artery disease) Assessment and Plan: stable and without angina. medical therapy Status: Acute (2) HTN (hypertension) Assessment and Plan: blood pressure control Status: Acute (3) Diabetes Assessment and Plan: agressive glucose management Status: Acute (4) Aortic valve stenosis Assessment and Plan: mild prostehtic . no acute intervention necessary Status: Acute (5) Syncope Assessment and Plan: likely postural. can d/c home in am. Status: Acute
[2018-06-03] MEDS ORDERED: (Lantus) Insulin Glargine, Recombinant SC SCH (22:00)
[2018-06-04] MEDS ORDERED: Metoprolol 1 mg/ml Inj IVP ONE (01:05)
[2018-06-04 02:49] VITALS: O2SAT 98
[2018-06-04 07:51] VITALS: PULSE 86
[2018-06-04] MEDS: (Novolog) Insulin Aspart, Recombinant 100 u/ml 10 ml vial SC SCH ×2 (07:55→12:44)
[2018-06-04 08:42] VITALS: BP 134/72; TEMP 97.7
[2018-06-04 09:07] LABS: BASO # 0.1 K/uL (0.0-0.2); EOS # 0.2 K/uL (0.0-0.7); EOS % 2.2 % (0.0-4.0); LYMPH # 1.4 K/uL (1.0-4.3); LYMPH % 20.2 % (20.0-40.0); MEAN CELL VOLUME 92.4 fL (80.0-94.0); MEAN CORPUSCULAR HGB CONC 34.6 g/dL (33.0-37.0); MEAN PLATELET VOLUME 8.2 fL (7.2-11.7); MONO # 0.7 K/uL (0.0-0.8); MONO % 9.8 % (0.0-10.0); NEUT # 4.8 K/uL (1.8-7.0); NEUT % 66.8 % (50.0-75.0); RBC 3.44 Mil/uL (4.40-5.90); RED CELL DISTRIBUTION WIDTH 17.9 % (11.5-14.5); WHITE BLOOD COUNT 7.1 K/uL (4.8-10.8)
[2018-06-04 09:18] LABS: ALB/GLOB RATIO 1.4 (1.0-2.1); ALBUMIN 4.3 g/dL (3.5-5.0); ALT/SGPT 19 U/L (21-72); AST/SGOT 23 U/L (17-59); BLOOD UREA NITROGEN 27 mg/dL (9-20); GFR NON-AFRICAN AMERICAN 59
[2018-06-04 09:28] LABS: COMPLEMENT C4 19.9 mg/dL (14.0-44.0)
[2018-06-04] MEDS: Pantoprazole 40 mg EC Tab PO SCH (09:52)
[2018-06-04] MEDS: Venlafaxine 75 mg ER Cap PO SCH (09:52)
[2018-06-04] MEDS: diltiaZEM 60 mg ER Cap PO SCH (09:52)
[2018-06-04] MEDS: Metoprolol Succinate 25 mg XL Tab PO SCH (09:52)
[2018-06-04] MEDS ORDERED: Multivitamin With Minerals Tab PO SCH (10:00)
[2018-06-04] MEDS ORDERED: Influenza Vaccine 60 MCG/0.5 ML SYR (3 yr & up) IM ONE (13:24)
[2018-06-04] MEDS ORDERED: Pneumococcal 23-Valent Vaccine IM ONE (13:24)
--- NOTE | 2018-06-04 14:25 | CP.PCM.PN ---
Subjective - Date & Time of Evaluation Date of Evaluation: 06/04/18 Time of Evaluation: 14:24 - Subjective Subjective: PATIENT SEEN AND EXAMINED AT THE BEDSIDE Objective - Vital Signs/Intake and Output Vital Signs (last 24 hours): Temp Pulse Resp BP Pulse Ox 97.7 F 86 20 134/72 98 06/04/18 07:35 06/04/18 07:45 06/04/18 07:35 06/04/18 07:35 06/04/18 07:35 - Medications Medications: Current Medications Acetaminophen (Tylenol 325mg Tab) 650 mg PO Q4H PRN PRN Reason: Pain, moderate (4-7) Last Admin: 06/03/18 23:50 Dose: 650 mg Aspirin (Aspirin Chewable) 81 mg PO DAILY [facility] Last Admin: 06/04/18 09:52 Dose: 81 mg Diltiazem HCl (Cardizem Sr) 240 mg PO DAILY [facility] Last Admin: 06/04/18 09:52 Dose: 240 mg Ergocalciferol (Drisdol 50,000 Intl Units Cap) 1 cap PO QWK [facility] Last Admin: 06/03/18 13:26 Dose: 1 cap Ferrous Gluconate (Fergon) 324 mg PO TID [facility] Last Admin: 06/04/18 09:52 Dose: 324 mg Finasteride (Proscar) 5 mg PO DAILY [facility] Last Admin: 06/04/18 09:52 Dose: 5 mg Gemfibrozil (Lopid) 600 mg PO BID [facility] Last Admin: 06/04/18 09:52 Dose: 600 mg Insulin Aspart (Novolog) 0 unit SC [facility]; Protocol Last Admin: 06/04/18 12:44 Dose: Not Given Insulin Glargine (Lantus) 100 unit SC HS [facility] Last Admin: 06/03/18 21:46 Dose: 100 unit Loratadine (Claritin) 10 mg PO DAILY [facility] Last Admin: 06/04/18 09:52 Dose: 10 mg Metoprolol Succinate (Toprol Xl) 25 mg PO DAILY [facility] Last Admin: 06/04/18 09:52 Dose: 25 mg Multivitamins/Minerals (Therapeutic-M Tab) 1 tab PO DAILY [facility] Last Admin: 06/04/18 09:52 Dose: 1 tab Pantoprazole Sodium (Protonix Ec Tab) 40 mg PO DAILY [facility] Last Admin: 06/04/18 09:52 Dose: 40 mg Rosuvastatin Calcium (Crestor) 5 mg PO DAILY@1800 [facility] Last Admin: 06/03/18 18:09 Dose: 5 mg Tamsulosin HCl (Flomax) 0.4 mg PO DAILY [facility] Last Admin: 06/04/18 09:53 Dose: 0.4 mg Ticagrelor (Brilinta) 90 mg PO BID [facility] Last Admin: 06/04/18 10:04 Dose: 90 mg Venlafaxine HCl (Effexor Xr) 75 mg PO BID [facility] Last Admin: 06/04/18 09:52 Dose: 75 mg Zolpidem Tartrate (Ambien) 5 mg PO HS PRN PRN Reason: Insomnia - Labs Labs: 06/04/18 08:57 06/04/18 08:57 Assessment and Plan - Assessment and Plan (Free Text) Assessment: FOLLOW UP WITH DR CARRANZA IN HIS OFFICE ----CALL FOR APPOINTMENT FOLLOW UP WITH DR WAHL IN HIS OFFICE NEXT WEEK ----CALL FOR APPOINTMENT ADDRESS YOUR BPH AND POST RESIDUAL RESULT AT YOUR VISIT CONTINUE HOME MEDICATION ACTIVITY TOLERATED CALL DR CARRANZA OR GO TO THE EMERGENCY ROOM IF SYMPTOM RETURN OR WORSENING
--- NOTE | 2018-06-06 08:13 | HP ---
HISTORY OF PRESENT ILLNESS: The patient is a 78-year-old man who is now complaining of frequent falls. The patient came in to the hospital. Advised admission. The patient admitted acute renal failure, heart disease. PHYSICAL EXAMINATION: GENERAL: The patient is awake, alert, and oriented. VITAL SIGNS: Temperature 98, pulse 90. HEENT: Within normal limits. NECK: Supple. HEART: Regular. ABDOMEN: Soft. EXTREMITIES: No edema. IMPRESSION: Renal insufficiency, frequent falls. The patient is on bedrest, supportive care. Gunnre Shabazz MD
[2018-06-06 11:54] LABS: ALPHA-1-GLOBULIN (PEP) 0.3 g/dL (0.2-0.3)
== END 2018-06-04 15:13 | disposition home or self-care (01) | DRG 683 ==
LOC: SUPCPDRO 22:10 → C.ER 22:10 → C.9E 06-03 01:53 → C.5S 06-03 13:17
PROVIDERS: ADMIT Internal Medicine Pulmonary Disease; ATTEND Internal Medicine Pulmonary Disease
DX: N17.9 Acute kidney failure, unspecified (principal); E87.2 Acidosis; I13.0 Hypertensive heart and chronic kidney disease with heart failure and stage 1 through stage 4 chronic kidney disease, or unspecified chronic kidney disease; I50.22 Chronic systolic (congestive) heart failure; E11.22 Type 2 diabetes mellitus with diabetic chronic kidney disease; E78.00 Pure hypercholesterolemia, unspecified; E78.5 Hyperlipidemia, unspecified; E87.5 Hyperkalemia; F41.9 Anxiety disorder, unspecified; I25.10 Atherosclerotic heart disease of native coronary artery without angina pectoris; I35.0 Nonrheumatic aortic (valve) stenosis; J44.9 Chronic obstructive pulmonary disease, unspecified; K21.9 Gastro-esophageal reflux disease without esophagitis; N18.3 Chronic kidney disease, stage 3 (moderate); N40.0 Benign prostatic hyperplasia without lower urinary tract symptoms; R29.6 Repeated falls; Z79.4 Long term (current) use of insulin; Z87.891 Personal history of nicotine dependence; Z95.1 Presence of aortocoronary bypass graft; Z95.2 Presence of prosthetic heart valve; Z95.5 Presence of coronary angioplasty implant and graft; D63.8 Anemia in other chronic diseases classified elsewhere